=== PATIENT | female | born 1940 | race Caucasian/White ===

== ENCOUNTER → 2019-03-26 | Outpatient (CLI) | payer MEDICARE, OTHER, SELFPAY ==
[2019-03-26 09:57] VITALS: BMI 30.7
--- NOTE | 2019-03-26 10:35 | RAD_ITS ---
PROCEDURE: Fluoroscopic guided Hip Injection DATE: March 26, 2019. INDICATION: Female, 78 years old. Chronic right hip pain. PHYSICIAN: James Marc M.D. MEDICATIONS: 6 mg of betamethasone and 3 cc of 1% lidocaine. 2% Lidocaine administered subcutaneously for local anesthesia. ACCESS SITE: Right hip. NEEDLE: 22-gauge spinal needle. FLUOROSCOPY TIME (if supplied): (0:33) minutes/seconds FINDINGS: The risks, benefits, and alternatives to the procedure were explained to the patient. The specific risks of bleeding, infection, and neurovascular injury were detailed and accepted. Witnessed informed consent was obtained. A 20-gauge spinal needle was positioned under radiographic fluoroscopic localization. Approximately 2 cc of Isovue-300 instilled for localization purposes. Medication was then injected. The patient tolerated the procedure well without any immediate complications. RAD/Inj/Asp Memo Jt Should/Hip/Knee IMPRESSION: 1. Successful fluoroscopic guided hip injection. Electronically Signed: James Marc, at 13:25 EDT , Service support ,
== END | disposition home or self-care (01) ==
PROVIDERS: Referring Provider Specialist; Visit Provider Specialist
DX: M16.11 Unilateral primary osteoarthritis, right hip (principal)
CPT/HCPCS: 20610; 77002; Q9967; J0702

== ENCOUNTER → 2019-03-26 | Outpatient (CLI) | payer MEDICARE, OTHER, SELFPAY ==
--- NOTE | 2019-03-18 11:52 | HP.PCM_ITS ---
History and Physical DATE OF SURGERY: 04/08/2019 SCHEDULED PROCEDURE: left total hip arthroplasty HISTORY OF PRESENT ILLNESS: Preoperative history and physical exam was performed on March 18, 2019. This is a 78-year-old female who has been having ongoing pain for approximately 5 years in bilateral hips. She has had progressive worsening pain over the past 1-2 years. Patient's pain is been intermittent, sharp, sore. Pain is increased with stairs, sitting, and walking. Patient does have start up pain. They can reach as high as an 8/10. Pain is located over lateral bilateral hips which radiates into the groin and thighs bilaterally. Patient has difficult time with activities of daily living including shopping as well as getting dressed trying to put her shoes and socks on. Patient has tried previous conservative measures consisting of ice and heat with no relief in symptoms. Rest is only temporarily helpful. Patient has tried oral medications including Tylenol and ibuprofen which only give her temporary relief. Patient denies previous surgery on the left hip. Patient denies any recent chest pain, shortness of breath, fevers chills, recent infections. Patient has medical history pertinent for hypertension. We are obtaining surgical clearance from the primary care physician. After failing conservative measures and discussing treatment options with Dr. Tony Talley, the patient would like to proceed with a left total hip arthroplasty. REVIEW OF SYSTEMS: ROS: Const: Denies change in appetite, fever and weight change. CV: Denies chest pain, heart murmur and irregular heartbeat. Resp: Denies cough, pneumonia, shortness of breath, tuberculosis and wheezing. GI: Reports heartburn and nausea, but denies constipation, diarrhea, rectal itching, bloody stools and vomiting. : Denies incontinence. Musculo: Reports intermittent claudication, leg swelling, pain, trouble walking and weakness. Skin: Denies Raynaud's, history of shingles and tattoo. Neuro: Reports dizziness but denies ambulatory dysfunction, numbness/tingling and tremor. Psych: Denies anxiety, insomnia and stress. Roger/Lymph: Denies anemia, bleeding/bruising tendency and past transfusion. Reviewed and updated. PAST MEDICAL HISTORY: Advance Care Plan: No Advance Directives Effective Date: 03/09/2019 PMH: Medical Problems: Arthritis, High Blood Pressure, Thyroid Disease Accidents: None Surgical Hx: RT Knee Arthroscopy - (2011) Hysterectomy - (1991) Anesthesia Complications: None Assistive Devices: Glasses - Reading, Dentures - Top Reviewed and updated. SOCIAL HISTORY: SH: Marital: .Occupation: Retired.Work Status: Retired.Hand Dominance: Right- handed. Personal Habits: Cigarette Use: Never Smoked Cigarettes.Smokeless Tobacco: Never Used Smokeless Tobacco.E-Cigarette Use: Never used.Alcohol: Denies use.Drug Use: Denies Use.Enjoy Exercising: Never Exercises. Reviewed, no changes. VITALS: Ht: 63 Wt: 173lb Wt k.473 BMI: 30.6 BP: 136/86 Pulse: 68 T: 97.9 T: 36.6C ALLERGIES: No Known Drug Allergy MEDICATIONS: Metoprolol Tartrate 50 mg 1po bid, Hydralazine HCL 25 mg 1po qday, Amlodipine Besylate 10 mg 1po qday, Loratadine 10 mg 1po qday, Levothyroxine Sodium 50 mcg 1po qday, Omeprazole 20 mg as needed, Aspir-81 81 mg 1 tab by mouth daily, Vitamin B12 100 mcg 1po qday, Vitamin E 200 Unit 1po qday, Calcium 600+D3 600- 200 MG-Unit 1po qday, Multivitamins 1po qday, Arthritis Pain Reliever 650 mg prn pain PRE-OP EXAM: General appearance:NORMAL Other: Eyes: Conjunctivae and lids: NORMAL Pupils: ERR Ears, Nose, Mouth, and Throat: NORMAL Other: Inspection of lips, teeth and gums: NORMAL Other: Neck: Examination of neck: no masses noted. Respiratory: Assessment of respiratory effort: NORMAL Other: Auscultation of lungs: clear to auscultation no wheezes, rhonchi or rales. Cardiovascular: Auscultation of heart: regular rate and rhythm, no murmurs, gallops or rubs. Gastrointestinal: Exam of abdomen: soft, nontender, nondistended bowel sounds present. PHYSICAL EXAMINATION: Patient does walk with an antalgic gait. Left leg is 4 mm longer when compared to the right. Left hip range of motion: 85 flexion, internal rotation 5, external rotation 25. Pain is reproduced with flexion, adduction, and internal rotation. Patient does have tenderness to palpation over the left greater trochanteric region. Sensation intact to light touch. Neurovascularly intact. IMAGING STUDIES: X-rays of the hip were obtained which does reveal joint space narrowing, subchondral sclerosis, and osteophyte formation consistent with severe osteoarthritis. Right hip reveals [id number] joint space narrowing with mild osteophyte formation. Based on the AP pelvis and lesser trochanters hips appear the same length. IMPRESSION: 1. Severe left hip osteoarthritis 2. Right hip osteoarthritis 3. Hypertension 4. Thyroid disease PLAN: Dr. Tony Talley did discuss and review with the patient all treatment options including surgical versus nonsurgical options. Patient does wish to proceed with the above-stated procedure. Potential risks, benefits, and complications of the procedure were discussed in detail including but not limited to , infection, nerve and blood vessel damage, persistent pain, numbness, tingling, paresthesias, blood clot, pulmonary embolism, and requirement for possible further surgery. The patient expressed full understanding and has no further questions for the doctor. Patient does agree to proceed with the above-stated procedure and has signed the surgery consent form. This dictation was created using voice recognition software. Phonetic and/or grammatical errors may exist.. ___ I have re-examined the patient. There are no clinical changes since date of exam. ___ See progress notes for changes. ___ Dictated on admission Date: Time: Signature:
[2019-03-26 09:57] VITALS: BP 190/82; PULSE 64; RESP 16; TEMP 36.8; O2SAT 95; BMI 30.7
--- NOTE | 2019-03-26 10:19 | SDCEKG_ITS ---
Test Reason : Blood Pressure : / mmHG Vent. Rate : 060 BPM Atrial Rate : 060 BPM P-R Int : 156 ms QRS Dur : 130 ms QT Int : 454 ms P-R-T Axes : 045 -38 053 degrees QTc Int : 454 ms Normal sinus rhythm Left axis deviation Left bundle branch block Abnormal ECG Confirmed by VINAY LUIS, JULIO ([id number]), dictionary editor MARA HERRMANN ([id number]) on 03/31/2019 8:55:17 AM Referred By: Tony Talley Confirmed By:JULIO MCLEAN MD
[2019-03-26 10:37] LABS: Absolute Neutrophil Count 3.6 X10^3/uL (2.0-7.7); Basophil# 0.02 X10^3/uL; Basophil% 0.3 % (0-1); Eosinophils% 1.4 % (0-5); Hematocrit 44.4 % (37-47); Lymphocyte % 41.3 % (19-41); Mean Corp Hgb Conc 33.8 g/gl (32-36); Mean Corpuscular Hgb 31.4 pg (27.0-32.0); Mean Corpuscular Volume 93.1 fL (81-99); Mean Platelet Vol. 10.6 fl (6.2-12.0); Monocyte# 0.48 X10^3/uL; Monocyte% 6.6 % (0-10); Neutrophil # 3.63 X10^3/uL (2.7-7.7); Platelet Count 227 K/mm3 (150-450); RBC Distribution Width SD 43.4 fl (35.1-43.9); Red Blood Count 4.77 M/mm3 (4.2-5.4); White Blood Count 7.3 K/mm3 (4.4-11.0)
[2019-03-26 10:38] LABS: POSITIVE COUNT NO; POSITIVE DIFFERENTIAL NO; POSITIVE MORPHOLOGY NO
[2019-03-26 10:51] LABS: International Normalized Ratio 1.1; Partial Thromboplast Time 26.8 Seconds (24.1-36.2); Prothrombin Time (Protime)PT. 14.1 SECONDS (11.7-14.9)
[2019-03-26 11:14] LABS: AST(SGOT) 18 U/L (15-37); Alanine Aminotransfer ALT/SGPT 20 U/L (13-56); Albumin, Serum 3.7 g/dL (3.2-5.0); Alkaline Phosphatase 76 U/L (45-117); Anion Gap 5 (5-15); BUN 14 mg/dL (7-18); BUN/Creat Ratio 16.8 RATIO (10-20); Bilirubin, Direct 0.15 mg/dL (0.00-0.30); Calcium,Total 8.8 mg/dL (8.5-10.1); Chloride 106 mmol/L (98-107); Creatinine, Serum 0.83 mg/dL (0.55-1.02); EST Glomerular Filtration Rate 71 mL/min (>60); Est Glom Filt Rate - Afr Amer 85 mL/min (>60); Globulin 3.2 g/dL (2.2-4.2); Glucose 103 mg/dL (74-106); Potassium 3.8 mmol/L (3.5-5.1); Protein, Total 6.9 g/dL (6.4-8.2); Sodium Level 140 mmol/L (136-145); Thyroid Stim Hormone (TSH) 6.31 uIU/mL (0.358-3.74)
[2019-04-07] VITALS (9 sets, daily range): BP systolic 149–190; BP diastolic 71–92; PULSE 52–70; RESP 16–18; TEMP 36.6; O2SAT 90–98; BMI 30.7
[2019-04-07] MEDS: Acetaminophen 500 MG Tablet 1000 MG PO (12:10)
[2019-04-07] MEDS: Celecoxib 200 MG Capsule 400 MG PO (12:12)
== END | disposition home or self-care (01) ==
LOC: PAT 04-13 11:34
PROVIDERS: Anesthesiology; Referring Provider Specialist; Visit Provider Specialist
DX: Z01.818 Encounter for other preprocedural examination (principal); Z01.810 Encounter for preprocedural cardiovascular examination; E07.9 Disorder of thyroid, unspecified
CPT/HCPCS: 80048; 80076; 84443; 85025; 85610; 85730; 87081; 93005; J7120